=== PATIENT | male | born 1965 | race Two or more races ===

== ENCOUNTER 2024-08-23 09:42 | Emergency (ER) | payer MEDICAID, OTHER ==
[~2024-08-23] VITALS: Ht 172.7 cm; Wt 109.1 kg
--- NOTE | 2024-08-23 10:01 | ED.PDOC ---
History of Present Illness HPI Comments 58 y/o M presents with c/o left-sided facial numbness and droop since 0800, this morning. Patient comments on awakening, suddenly, to symptoms, with no prior Hx of. Patient endorses on no recent injuries, sick contact, travel, substance use or exposure, or new medication use. Denies having any left-sided weakness to upper or lower extremities, vision or speech changes, or other associated symptoms or modifiers at this time. Chief Complaint: Left Sided Weakness Time Seen by MD: 09:45 Reviewed Notes: Nurses Notes, Medications, Allergies Allergies: Coded Allergies: NO KNOWN ALLERGIES (Unverified , 08/23/24) Information Source: Patient Mode of Arrival: Ambulatory Severity: Moderate Timing: Hours Duration: Since onset Prehospital treatment: None Past Medical History PAST MEDICAL HISTORY: Denies Surgical History: Denies all surgeries Family History Family History: Unknown Social History Smoker: Non-Smoker Alcohol: Denies ETOH Use Drugs: Denies Drug Use Lives In: Home Constitutional: denies: chills, diaphoresis, fatigue, fever, malaise, sweats, weakness, others EENTM: denies: blurred vision, double vision, ear bleeding, ear discharge, ear drainage, ear pain, ear ringing, eye pain, eye redness, hearing loss, mouth pain, mouth swelling, nasal discharge, nose bleeding, nose congestion, nose pain, photophobia, tearing, throat pain, throat swelling, voice changes, others Respiratory: denies: cough, hemoptysis, orthopnea, SOB at rest, shortness of breath, SOB with excertion, stridor, wheezing, others Cardiovascular: denies: chest pain, dizzy spells, diaphoresis, Dyspnea on exertion, edema, irregular heart beat, left arm pain, lightheadedness, palpitations, PND, syncope, others Gastrointestinal: denies: abdomen distended, abdominal pain, blood streaked bowels, constipated, diarrhea, dysphagia, difficulty swallowing, hematemesis, melena, nausea, poor appetite, poor fluid intake, rectal bleeding, rectal pain, vomiting, others Genitourinary: denies: burning, dysuria, flank pain, frequency, hematuria, incontinence, penile discharge, penile sore, pain, testicle pain, testicle swelling, urgency, others Neurological: reports: others (left-sided facial droop and numbness); denies: dizziness, fainting, headache, left sided numbness, left sided weakness, numbn ess, paresthesia, pre-existing deficit, right sided numbness, right sided weakness, seizure, speech problems, tingling, tremors, weakness Musculoskeletal: denies: back pain, gout, joint pain, joint swelling, muscle pain, muscle stiffness, neck pain, others Integumetry: denies: bruises, change in color, change in hair/nails, dryness, laceration, lesions, lumps, rash, wounds, others Allergic/Immunocompromised: denies: Difficulty Healing, Frequent Infections, Hives, Itching, others Hematologic/Lymphatic: denies: anemia, blood clots, easy bleeding, easy bruising, swollen glands, others Endocrine: denies: excessive hunger, excessive sweating, excessive thirst, excessive urination, flushing, intolerance to cold, intolerance to heat, unexplained weight gain, unexplained weight loss, others Psychiatric: denies: anxiety, bipolar disorder, depression, hopeless, panic disorder, schizophrenia, sleepless, suicidal, others All Other Systems: Reviewed and Negative Physical Exam General Appearance: Moderate Distress HEENT: Normal ENT Inspection, Pharynx Normal, TMs Normal Neck: Full Range of Motion, Non-Tender, Normal, Normal Inspection Respiratory: Chest Non-Tender, Lungs Clear, No Accessory Muscle Use, No Respiratory Distress, Normal Breath Sounds Cardiovascular: No Edema, No JVD, No Murmur, No Gallop, Normal Peripheral Pulses, Regular Rate/Rhythm Breast Exam: Deferred Gastrointestinal: No Organomegaly, Non Tender, No Pulsatile Mass, Normal Bowel Sounds, Soft Genitalia: Deferred Pelvic: Deferred Rectal: Deferred Extremities: No calf tenderness, Normal capillary refill, Normal inspection, Normal range of motion, Non-tender, No pedal edema Musculoskeletal : Apperance: Normal Neurologic: Alert, Facial Droop (Left-sided patient was droop), No Motor Deficits, Normal Affect, Normal Mood, No Sensory Deficits Cerebellar Function: Normal Reflexes: Normal Skin: Dry, Normal Color, Warm Lymphatic: No Adenopathy Was a procedure done? Was a procedure done?: No EKG EKG : Pulse Rate (adult): 104 [place]: Normal Cardiac Rhythm: ST ST: Nonsp Differential Dx Considerations may include: Suresh's Palsy, CVA, TIA X-Ray, Labs, Meds, VS Vital Signs Date Time Temp Pulse Resp B/P (MAP) Pulse Ox O2 Delivery O2 Flow Rate FiO2 08/23/24 10:48 104 08/23/24 10:42 97.6 108 15 162/98 (119) 98 97.6 08/23/24 10:42 Room Air* 0 21 08/23/24 09:55 98.6 99 16 161/94 (116) 98 Lab Test 08/23/24 10:24 08/23/24 09:50 Range/Units White Blood Count Pending Red Blood Count Pending Hemoglobin Pending Hematocrit Pending Mean Corpuscular Volume Pending Mean Corpuscular Hemoglobin Pending Mean Corpuscular Hemoglobin Concent Pending Red Cell Distribution Width Pending Platelet Count Pending Mean Platelet Volume Pending Neutrophils (%) (Auto) Pending Lymphocytes (%) (Auto) Pending Monocytes (%) (Auto) Pending Basophils (%) (Auto) Pending Neutrophils # (Auto) Pending Lymphocytes # (Auto) Pending Monocytes # (Auto) Pending Prothrombin Time Pending Prothrombin Time INR Pending Activated Partial Thromboplast Time Pending Sodium Level Pending Potassium Level Pending Chloride Level Pending Carbon Dioxide Level Pending Anion Gap Pending Blood Urea Nitrogen Pending Creatinine Pending Glomerular Filtration Rate Calc Pending BUN/Creatinine Ratio Pending Serum Glucose Pending Calcium Level Pending Magnesium Level Pending Total Bilirubin Pending Aspartate Amino Transferase (AST) Pending Alanine Aminotransferase (ALT) Pending Alkaline Phosphatase Pending Troponin I High Sensitivity Pending B-Type Natriuretic Peptide Pending Total Protein Pending Albumin Pending POC Glucose 203 H 70-106 mg/dl The CT scan of the head shows: IMPRESSION: 1. Acute intraparenchymal hemorrhage in the posterior aspect of the hair. 2. Additional findings as detailed above. Critical findings Critical Result: Stroke Alert. Acute pontine hemorrhage. The chest x-ray is negative After receiving the findings on the CT scan, we immediately called [facility]. The patient was somewhat hypertensive so is being started on a nicardipine drip. The patient was being transferred to [place] at this time We spoke with the family and they are in agreement with the management. The patient will be flown by [employer] Images Reviewed?: Images reviewed and evaluated by me Time of 1ST Reevaluation: 10:15 Reevaluation 1ST: Unchanged Time of 2ND Reevaluation: 11:01 Reevaluation 2ND: Unchanged Patient Education/Counseling: Diagnosis, Treatment, Prognosis Family Education/Counseling: Diagnosis, Treatment, Prognosis, No Family Present Departure 1 Departure Time of Disposition: 11:01 Impression: Primary Impression: Intraparenchymal hemorrhage of brain Additional Impression: Hypertensive crisis Disposition: 51 HOSPICE/MEDICAL FACILITY Condition: Critical Critical Care Note Critical Care Time?: Yes (45 min-critical care time only) Stability Stability form required: Yes Stable for transfer: Intended for transfer (Health plan request transfer), To designated facility Heart Score Heart Score: Heart Score Response (Comments) Value History N/A 0 EKG N/A 0 Age N/A 0 Risk Factors N/A 0 Troponin N/A 0 Total 0 I personally scribed for OMAR HURD MD ([email or web address]) on 08/23/24 at 10:01. Electronically submitted by Sergo Haskins ([email or web address]). OMAR HURD MD Aug 23, 2024 10:01
--- NOTE | 2024-08-23 10:20 | DVH ---
EXAM: XY CHEST XRAY 1 VIEW Indication: Pain Technique: Single frontal view of the chest was obtained Comparison: None FINDINGS: Lines and Tubes: None Lungs: No focal consolidation. Pleura: No effusion. No pneumothorax. Cardiomediastinal contours: Unremarkable Bones: No acute osseous abnormality. IMPRESSION: No acute cardiopulmonary disease.
--- NOTE | 2024-08-23 10:28 | DVH ---
CLINICAL INFORMATION: 58 years old, Male; R/O CVA. TECHNIQUE: Axial imaging was obtained through the brain without contrast. Coronal and sagittal refor matted images were obtained, reviewed, and stored. Images were reviewed in brain and bone windows. A ll CT scans at this medical facility are performed using dose modulation techniques as appropriate to a performed exam including the following: Automated exposure control was utilized; adjustment of the MA and/or KV according to patient size; and use of iterative reconstruction technique. CTDIvol = 64.89 mGy DLP = 1277.22 mGy-cm COMPARISON: None FINDINGS: Acute intraparenchymal hemorrhage in the posterior aspect of the hair measuring up to 0.7 x 0.8 x 1.6 cm. The hemorrhage is in close proximity to the anterior aspect of the 4th ventricle. No significant mass effect. No midline shift. Scattered areas of hypoattenuation are seen in the periven tricular and subcortical white matter, which are nonspecific but most likely sequelae of small vessel ischemic disease.The ventricles and sulci are within normal limits in size for age. Basal cisterns a re patent. The calvarium is unremarkable. Paranasal sinuses and mastoid air cells are clear. IMPRESSION: 1. Acute intraparenchymal hemorrhage in the posterior aspect of the hair. 2. Additional findings as detailed above. Critical findings Critical Result: Stroke Alert. Acute pontine hemorrhage. Findings discussed with Dr. Urias by Dr. 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 ..
[2024-08-23] MEDS ORDERED: cloNIDine HCL 0.1 MG TAB PO ONE (10:45)
--- NOTE | 2024-08-23 10:46 | ECG ---
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
[2024-08-23 10:58] LABS: Basophils # (auto) 0.1 10 ^3/uL (0-0.2); Basophils % (auto) 0.6 % (0.0-2.0); Eosinophils # (auto) 0.1 10 ^3/uL (0-0.8); Eosinophils % (auto) 0.8 % (0.0-7.0); Hematocrit 50.8 % (41.0-53.0); Lymphocytes # (auto) 1.7 10 ^3/uL (0.4-5.4); Lymphocytes % (auto) 20.5 % (10.0-50.0); Mean Corpuscular Hemoglobin 29.1 pg (28.0-32.0); Mean Corpuscular Hgb Conc. 33.5 g/dL (32.0-36.0); Monocytes # (auto) 0.5 10 ^3/uL (0-1.3); Monocytes % (auto) 5.9 % (0.0-12.0); Neutrophils # (auto) 5.9 10 ^3/uL (1.6-8.6); Neutrophils % (auto) 72.2 % (37.0-80.0); Nucleated Red Blood Cells % 0.2 %; Platelet Count (auto) 249 10^3/uL (140-450); Red Blood Cells 5.84 10^6/uL (4.5-5.90); Red Cell Distribution Width 14.7 % (11.8-14.3); White Blood Cell 8.2 10^3/uL (4.4-10.8)
[2024-08-23 11:04] VITALS: BP 146/73; PULSE 105; RESP 25; TEMP 97.4; O2SAT 97
[2024-08-23 11:05] LABS: Alanine Aminotransferase 18 U/L (7-40); Albumin 4.4 g/dL (3.2-4.8); Alkaline Phosphatase 139 U/L (46-116); Anion Gap 11 (5-15); Aspartate Aminotransferase 13 U/L (13-40); BUN/Creatinine Ratio 8.2 (10.0-20.0); Blood Urea Nitrogen 7 mg/dL (9-23); Calcium 9.5 mg/dL (8.7-10.4); Carbon Dioxide 21 mmol/L (20-31); Chloride 108 mmol/L (98-107); Glucose 191 mg/dL (74-106); Sodium 140 mmol/L (136-145)
[2024-08-23 11:06] LABS: Bilirubin, Total 0.8 mg/dL (0.2-1.0)
[2024-08-23 11:20] LABS: INR 1.02 (0.9-1.15); Partial Thromboplastin Time 25.1 SEC (24.5-34.5); Prothrombin Time 10.8 sec (9.3-11.8)
== END 2024-08-23 11:50 | disposition short-term general hospital (02) ==
LOC: ER 09:42
DX: I61.3 Nontraumatic intracerebral hemorrhage in brain stem (principal); I16.9 Hypertensive crisis, unspecified; I10 Essential (primary) hypertension; R06.02 Shortness of breath
CPT/HCPCS: 36415; 70450; 71045; 80053; 82962; 83735; 83880; 84484; 85025; 85610; 85730; 93005; 96374

== ENCOUNTER 2024-09-04 11:32 | Inpatient (IN) | payer MEDICAID ==
[~2024-09-04] VITALS: Ht 172.7 cm; Wt 101.8 kg
--- NOTE | 2024-09-04 12:07 | ED.PDOC ---
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 Patient's daughter states she noticed his left face appeared to be drooping more than normal last night. Pt reports that he was here at [facility] on August 23 and diagno sed w/ acute pontine Hemorrhage and was transported to [place]. Daughter states that the facial droop seemed to be improving until last night when it became more pronounced. Both patient and daughter noticed the pt having air come out of the mouth when he pronounces the "P" or "F" sound, which is new since last night. PMHx of HTN. Denies headache, vision changes, chills, fever, N/V/D, SOB, CP or other associated symptoms, modifiers, or recent injuries at this time. Time Seen by MD: 11:40 Primary Care Provider: UNKNOWN Reviewed Notes: Nurses Notes, Medications, Allergies Allergies: Coded Allergies: NO KNOWN ALLERGIES (Unverified , 08/23/24) Home Meds Reported Medications Amlodipine Besylate (Amlodipine Besylate) 5 Mg Tab, 1 TAB PO DAILY 09/04/24 Information Source: Patient, Relative (Child) Mode of Arrival: EMS Severity: Moderate Timing: Hours Duration: Since onset, Hours Prehospital treatment: None Past Medical History PAST MEDICAL HISTORY: HTN Past Medical History (Other): pontine hemorrhage, residual R facial weakness Surgical History: Denies all surgeries Family History Family History: Reviewed,noncontributory to illness, Unknown Social History Smoker: Non-Smoker Alcohol: Denies ETOH Use Drugs: Denies Drug Use Lives In: Home Constitutional: reports: others (left sided weakness worsened); denies: chills, diaphoresis, fatigue, fever, malaise, sweats, weakness EENTM: denies: blurred vision, double vision, ear bleeding, ear discharge, ear drainage, ear pain, ear ringing, eye pain, eye redness, hearing loss, mouth pain, mouth swelling, nasal discharge, nose bleeding, nose congestion, nose pain, photophobia, tearing, throat pain, throat swelling, voice changes, others Respiratory: denies: cough, hemoptysis, orthopnea, SOB at rest, shortness of breath, SOB with excertion, stridor, wheezing, others Cardiovascular: denies: chest pain, dizzy spells, diaphoresis, Dyspnea on exertion, edema, irregular heart beat, left arm pain, lightheadedness, palpitations, PND, syncope, others Gastrointestinal: denies: abdomen distended, abdominal pain, blood streaked bowels, constipated, diarrhea, dysphagia, difficulty swallowing, hematemesis, melena, nausea, poor appetite, poor fluid intake, rectal bleeding, rectal pain, vomiting, others Genitourinary: denies: burning, dysuria, flank pain, frequency, hematuria, incontinence, penile discharge, penile sore, pain, testicle pain, testicle swelling, urgency, others Neurological: denies: dizziness, fainting, headache, left sided numbness, left sided weakness, numbness, paresthesia, pre-existing deficit, right sided numbness, right sided weakness, seizure, speech problems, tingling, tremors, weakness, others Musculoskeletal: denies: back pain, gout, joint pain, joint swelling, muscle pain, muscle stiffness, neck pain, others Integumetry: denies: bruises, change in color, change in hair/nails, dryness, laceration, lesions, lumps, rash, wounds, others Allergic/Immunocompromised: denies: Difficulty Healing, Frequent Infections, Hives, Itching, others Hematologic/Lymphatic: denies: anemia, blood clots, easy bleeding, easy bruising, swollen glands, others Endocrine: denies: excessive hunger, excessive sweating, excessive thirst, excessive urination, flushing, intolerance to cold, intolerance to heat, unexplained weight gain, unexplained weight loss, others Psychiatric: denies: anxiety, bipolar disorder, depression, hopeless, panic disorder, schizophrenia, sleepless, suicidal, others All Other Systems: Reviewed and Negative Physical Exam General Appearance: No Apparent Distress HEENT: Other Neck: Full Range of Motion, Normal Inspection Respiratory: Lungs Clear, No Accessory Muscle Use, No Respiratory Distress, Normal Breath Sounds Cardiovascular: No Edema, No JVD, Regular Rate/Rhythm Breast Exam: Deferred Gastrointestinal: Non Tender, Soft Genitalia: Deferred Pelvic: Deferred Rectal: Deferred Extremities: Normal inspection, Normal range of motion, Non-tender, No pedal edema Neurologic: Normal Affect, Normal Mood, Other (Cranial nerve III, and VII deficits on the left) Cerebellar Function: NOT DONE Reflexes: NOT DONE Skin: Dry, Normal Color, Warm Lymphatic: NOT DONE Was a procedure done? Was a procedure done?: No EKG EKG : Comments Sinus tach, rate 105, normal intervals, normal axis, possible old inferior infarct, nonspecific T changes. Differential Dx Considerations may include: New intracranial hemorrhage, progression of recent hemorrhagic CVA, electrolyte imbalance, infection such as UTI or encephalitis, among others X-Ray, Labs, Meds, VS Vital Signs Date Time Temp Pulse Resp B/P (MAP) Pulse Ox O2 Delivery O2 Flow Rate FiO2 09/04/24 12:01 Room Air* 0 21 09/04/24 11:56 99.2 107 15 141/82 (101) 98 09/04/24 11:41 105 Lab Test 09/04/24 12:15 Range/Units White Blood Count 10.1 4.4-10.8 10^3/uL Red Blood Count 6.03 H 4.5-5.90 10^6/uL Hemoglobin 17.8 H 13.5-17.5 g/dL Hematocrit 53.3 H 41.0-53.0 % Mean Corpuscular Volume 88.3 80.0-100.0 fL Mean Corpuscular Hemoglobin 29.5 28.0-32.0 pg Mean Corpuscular Hemoglobin Concent 33.4 32.0-36.0 g/dL Red Cell Distribution Width 14.8 H 11.8-14.3 % Platelet Count 275 140-450 10^3/uL Mean Platelet Volume 6.9 6.9-10.8 fL Neutrophils (%) (Auto) 76.9 37.0-80.0 % Lymphocytes (%) (Auto) 14.5 10.0-50.0 % Monocytes (%) (Auto) 7.4 0.0-12.0 % Eosinophils (%) (Auto) 0.8 0.0-7.0 % Basophils (%) (Auto) 0.4 0.0-2.0 % Neutrophils # (Auto) 7.8 1.6-8.6 10 ^3/uL Lymphocytes # (Auto) 1.5 0.4-5.4 10 ^3/uL Monocytes # (Auto) 0.8 0-1.3 10 ^3/uL Eosinophils # (Auto) 0.1 0-0.8 10 ^3/uL Basophils # (Auto) 0 0-0.2 10 ^3/uL Nucleated Red Blood Cells 0.1 % Prothrombin Time 11.6 9.3-11.8 sec Prothrombin Time INR 1.10 0.9-1.15 Activated Partial Thromboplast Time 28.4 24.5-34.5 SEC Sodium Level 138 136-145 mmol/L Potassium Level 4.4 3.5-5.1 mmol/L Chloride Level 108 H 98-107 mmol/L Carbon Dioxide Level 20 20-31 mmol/L Anion Gap 10 5-15 Blood Urea Nitrogen 9 9-23 mg/dL Creatinine 0.79 0.700-1.30 mg/dL Glomerular Filtration Rate Calc 103 >90 mL/min BUN/Creatinine Ratio 11.4 10.0-20.0 Serum Glucose 120 H 74-106 mg/dL Calcium Level 9.9 8.7-10.4 mg/dL PROCEDURE(s): HWOCT - HEAD WITHOUT CONTRAST REASON: worsening R facial droop, h/o ICH 08/23/24 ORDER NUMBER(s): [id number], ACCESSION NUMBER(s): [id number] CLINICAL INFORMATION: 58 years old, Male; worsening right facial droop, history of intracranial hemorrhage on 08/23/2024. TECHNIQUE: Axial imaging was obtained through the brain without contrast. Coronal and sagittal reformatted images were obtained, reviewed, and stored. Images were reviewed in brain and bone windows. All CT scans at this medical facility are performed using dose modulation techniques as appropriate to a performed exam including the following: Automated exposure control was utilized; adjustment of the MA and/or KV according to patient size; and use of iterative reconstruction technique. CTDIvol = 59.89 mGy DLP = 958.88 mGy-cm COMPARISON: CT STROKE CTH on DOS: 08/23/24 FINDINGS: Corresponding to the area of previously seen intracranial hemorrhage at the posterior aspect of the hair, there is an area of low-density causing mild partial effacement of the anterior aspect of the adjacent 4th ventricle. No new acute intracranial hemorrhage is seen. Scattered areas of hypoattenuation a re seen in the periventricular and subcortical white matter, which are nonspecific but most likely sequelae of small vessel ischemic disease. The calvarium is unremarkable. Paranasal sinuses and mastoid air cells are clear. IMPRESSION: 1. Previously seen area of intracranial hemorrhage at the posterior aspect of the hair not demonstrates low-density consistent with evolving changes from the prior hemorrhage, causing mild partial effacement of the anterior aspect of the 4th ventricle. 2. No new acute intracranial hemorrhage. 3. No other evidence of acute intracranial abnormality. 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 CT head IMPRESSION: 1. Previously seen area of intracranial hemorrhage at the posterior aspect of the hair not demonstrates low-density consistent with evolving changes from the prior hemorrhage, causing mild partial effacement of the anterior aspect of the 4th ventricle. 2. No new acute intracranial hemorrhage. 3. No other evidence of acute intracranial abnormality. CBC, basic metabolic panel, coagulation panel unremarkable for any abnormality of acute significance Patient was not having any pain on re-evaluation. There were no new neurologic changes. Plan is to admit the patient for brain MRI and re-evaluation by Neurology. Time of 1ST Reevaluation: 12:10 Reevaluation 1ST: Unchanged Patient Education/Counseling: Diagnosis, Treatment, Prognosis Family Education/Counseling: Diagnosis, Treatment, Prognosis Additional Information I reviewed the following notes from the pt's past medical encounters: 08/23/24 The following tests were ordered, and results were reviewed by me: labs, CT Additional information was gathered from interviewing the following independent historians: [facility] I reviewed and agreed with the following test results read by other providers: CT I discussed treatments and results with medical personnel and: (consultants, [facility], etc) Departure 1 Departure Time of Disposition: 15:00 Impression: Primary Impression: Weakness on right side of face Disposition: ADMITTED INPATIENT Admit to: Tele Condition: Guarded Critical Care Note Critical Care Time?: No Stability Stability form required: No Heart Score Heart Score: Heart Score Response (Comments) Value History N/A 0 EKG N/A 0 Age N/A 0 Risk Factors N/A 0 Troponin N/A 0 Total 0 I personally scribed for SARAH CARRINGTON MD ([email or web address]) on 09/04/24 at 12:07. Electronically submitted by Ronaldo Polo ([email or web address]). SARAH CARRINGTON MD Sep 04, 2024 12:07
[2024-09-04 12:30] LABS: Basophils # (auto) 0 10 ^3/uL (0-0.2); Basophils % (auto) 0.4 % (0.0-2.0); Eosinophils # (auto) 0.1 10 ^3/uL (0-0.8); Eosinophils % (auto) 0.8 % (0.0-7.0); Hematocrit 53.3 % (41.0-53.0); Hemoglobin 17.8 g/dL (13.5-17.5); Lymphocytes # (auto) 1.5 10 ^3/uL (0.4-5.4); Lymphocytes % (auto) 14.5 % (10.0-50.0); Mean Corpuscular Hemoglobin 29.5 pg (28.0-32.0); Mean Corpuscular Hgb Conc. 33.4 g/dL (32.0-36.0); Mean Corpuscular Volume 88.3 fL (80.0-100.0); Monocytes # (auto) 0.8 10 ^3/uL (0-1.3); Monocytes % (auto) 7.4 % (0.0-12.0); Neutrophils # (auto) 7.8 10 ^3/uL (1.6-8.6); Neutrophils % (auto) 76.9 % (37.0-80.0); Nucleated Red Blood Cells % 0.1 %; Platelet Count (auto) 275 10^3/uL (140-450); Red Blood Cells 6.03 10^6/uL (4.5-5.90); Red Cell Distribution Width 14.8 % (11.8-14.3); White Blood Cell 10.1 10^3/uL (4.4-10.8)
[2024-09-04 12:38] LABS: Potassium 4.4 mmol/L (3.5-5.1); Sodium 138 mmol/L (136-145)
[2024-09-04 12:39] LABS: Anion Gap 10 (5-15)
[2024-09-04 12:40] LABS: Calcium 9.9 mg/dL (8.7-10.4); Carbon Dioxide 20 mmol/L (20-31); Chloride 108 mmol/L (98-107)
[2024-09-04 12:44] LABS: BUN/Creatinine Ratio 11.4 (10.0-20.0)
[2024-09-04 12:47] LABS: Blood Urea Nitrogen 9 mg/dL (9-23); Glucose 120 mg/dL (74-106); INR 1.1 (0.9-1.15); Partial Thromboplastin Time 28.4 SEC (24.5-34.5); Prothrombin Time 11.6 sec (9.3-11.8)
--- NOTE | 2024-09-04 12:53 | DVH ---
CLINICAL INFORMATION: 58 years old, Male; worsening right facial droop, history of intracranial he morrhage on 08/23/2024. TECHNIQUE: Axial imaging was obtained through the brain without contrast. Coronal and sagittal refor matted images were obtained, reviewed, and stored. Images were reviewed in brain and bone windows. A ll CT scans at this medical facility are performed using dose modulation techniques as appropriate to a performed exam including the following: Automated exposure control was utilized; adjustment of the MA and/or KV according to patient size; and use of iterative reconstruction technique. CTDIvol = 59.89 mGy DLP = 958.88 mGy-cm COMPARISON: CT STROKE CTH on DOS: 08/23/24 FINDINGS: Corresponding to the area of previously seen intracranial hemorrhage at the posterior aspe ct of the hair, there is an area of low-density causing mild partial effacement of the anterior aspec t of the adjacent 4th ventricle. No new acute intracranial hemorrhage is seen. Scattered areas of hyp oattenuation are seen in the periventricular and subcortical white matter, which are nonspecific but most likely sequelae of small vessel ischemic disease. The calvarium is unremarkable. Paranasal sinuses and mastoid air cells are clear. IMPRESSION: 1. Previously seen area of intracranial hemorrhage at the posterior aspect of the hair not demonstrat es low-density consistent with evolving changes from the prior hemorrhage, causing mild partial effac ement of the anterior aspect of the 4th ventricle. 2. No new acute intracranial hemorrhage. 3. No other evidence of acute intracranial abnormality.
[2024-09-04 15:20] VITALS: PULSE 88; RESP 14; O2SAT 94
[2024-09-04] MEDS ORDERED: AMLO1TAB22 PO (15:32)
--- NOTE | 2024-09-04 16:01 | DVHHP2 ---
History of Present Illness Reason for Visit: left sided facial droop History of Present Illness Fab Mccullough is a 58YO M with pmHx of HTN and CVA who presents to the ED for left sided facial droop x 1 day. He stated his daughter says his left side of his face is worse today compared to yesterday, however patient states it is the same and has not changed. Patient reports he was admitted here on August 23 and transferred to [facility] for an acute pontine hemorrhagic stroke, received treatment there and was discharged after several days. Patient's daughter brought him here today for an evaluation. Patient also reports double vision in his left eye in which he wears an eye patch for. Patient also reports using a FWW d/t the stroke. Patient reports he is compliant with his medication. Patient denies smoking, drinking, use of illicit drugs, acute weakness, numbness, tingling, STARK, lightheadedness, dizziness, sob, chest pain, N/V/D, and dysphagia. 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 Past Surgical History: None Family History: None Smoke: No ALCOHOL: none Drugs: None Lives: with Family Domestic Violence: Neg Review of Systems Constitutional: No: Fever, Chills, Sweats, Weakness, Malaise, Other Eyes: Other (double vision on left eye, wears an eye patch); No: Pain, Vision change, Conjunctivae inflammation, Eyelid inflammation, Redness ENT: No: Ear pain, Ear discharge, Nose pain, Nose discharge, Nose congestion, Mouth pain, Mouth swelling, Throat pain, Throat swelling, Other Respiratory: No: Cough, Dry, Shortness of breath, SOB with excertion, Wheezing, Hemoptysis, Pleuritic Pain, Sputum, Wheezing, Other Cardiovascular: No: Chest Pain, Palpitations, Orthopnea, Paroxysmal Noc. Dyspnea, Edema, Lt Headedness, Other Gastrointestinal: No: Nausea, Vomiting, Abdominal Pain, Diarrhea, Constipation, Melena, Hematochezia, Other Genitourinary: No Dysuria, No Frequency, No Incontinence, No Hematuria, No Retention, No Other Musculoskeletal: No: other, neck pain, shoulder pain, arm pain, back pain, hand pain, leg pain, foot pain Skin: No: Rash, Lesions, Jaundice, Bruising, Other Neurological: Other (left sided facial droop); No: Weakness, Numbness, Incoordination, Change in speech, Confusion, Seizures Allergies: Coded Allergies: NO KNOWN ALLERGIES (Unverified , 08/23/24) Exam Vital Signs Vital Signs Date Time Temp Pulse Resp B/P (MAP) Pulse Ox O2 Delivery O2 Flow Rate FiO2 09/04/24 12:01 Room Air* 0 21 09/04/24 11:56 99.2 107 15 141/82 (101) 98 General Appearance: Alert, Oriented X3, No acute distress HEENT: Atraumatic, PERRLA, EOMI, Mucous membr. moist/pink Respiratory: Clear to auscultation, Normal air movement Cardiovascular: Regular rate, Normal S1, Normal S2, No murmurs Abdominal: Normal bowel sounds, Soft, No tenderness, No hepatospenomegaly Extremities: No clubbing, No cyanosis, No edema, Normal pulses, No tenderness/swelling Skin: No rashes, No breakdown, No significant lesion Neuro: Normal speech, Strength at 5/5 X4 ext, Normal tone, Sensation intact, Other (uses FWW for ambulation) Psych/Mental Status: Mental status NL, Mood NL Labs/Xrays Labs Test 09/04/24 12:15 Range/Units White Blood Count 10.1 4.4-10.8 10^3/uL Red Blood Count 6.03 H 4.5-5.90 10^6/uL Hemoglobin 17.8 H 13.5-17.5 g/dL Hematocrit 53.3 H 41.0-53.0 % Mean Corpuscular Volume 88.3 80.0-100.0 fL Mean Corpuscular Hemoglobin 29.5 28.0-32.0 pg Mean Corpuscular Hemoglobin Concent 33.4 32.0-36.0 g/dL Red Cell Distribution Width 14.8 H 11.8-14.3 % Platelet Count 275 140-450 10^3/uL Mean Platelet Volume 6.9 6.9-10.8 fL Neutrophils (%) (Auto) 76.9 37.0-80.0 % Lymphocytes (%) (Auto) 14.5 10.0-50.0 % Monocytes (%) (Auto) 7.4 0.0-12.0 % Eosinophils (%) (Auto) 0.8 0.0-7.0 % Basophils (%) (Auto) 0.4 0.0-2.0 % Neutrophils # (Auto) 7.8 1.6-8.6 10 ^3/uL Lymphocytes # (Auto) 1.5 0.4-5.4 10 ^3/uL Monocytes # (Auto) 0.8 0-1.3 10 ^3/uL Eosinophils # (Auto) 0.1 0-0.8 10 ^3/uL Basophils # (Auto) 0 0-0.2 10 ^3/uL Nucleated Red Blood Cells 0.1 % Prothrombin Time 11.6 9.3-11.8 sec Prothrombin Time INR 1.10 0.9-1.15 Activated Partial Thromboplast Time 28.4 24.5-34.5 SEC Sodium Level 138 136-145 mmol/L Potassium Level 4.4 3.5-5.1 mmol/L Chloride Level 108 H 98-107 mmol/L Carbon Dioxide Level 20 20-31 mmol/L Anion Gap 10 5-15 Blood Urea Nitrogen 9 9-23 mg/dL Creatinine 0.79 0.700-1.30 mg/dL Glomerular Filtration Rate Calc 103 >90 mL/min BUN/Creatinine Ratio 11.4 10.0-20.0 Serum Glucose 120 H 74-106 mg/dL Calcium Level 9.9 8.7-10.4 mg/dL CLINICAL INFORMATION: 58 years old, Male; worsening right facial droop, history of intracranial hemorrhage on 08/23/2024. FINDINGS: Corresponding to the area of previously seen intracranial hemorrhage at the posterior aspect of the hair, there is an area of low-density causing mild partial effacement of the anterior aspect of the adjacent 4th ventricle. No new acute intracranial hemorrhage is seen. Scattered areas of hypoattenuation are seen in the periventricular and subcortical white matter, which are nonspecific but most likely sequelae of small vessel ischemic disease. The calvarium is unremarkable. Paranasal sinuses and mastoid air cells are clear. IMPRESSION: 1. Previously seen area of intracranial hemorrhage at the posterior aspect of the hair not demonstrates low-density consistent with evolving changes from the prior hemorrhage, causing mild partial effacement of the anterior aspect of the 4th ventricle. 2. No new acute intracranial hemorrhage. 3. No other evidence of acute intracranial abnormality. Assessment/Plan Assessment/Plan Assessment/Plan: R/O Stroke neuro assessment neuro checks labs am labs ct head noted ekg HTN home medication continued - amlodipine monitor BP Hyperchloremia monitor labs FEN/PPX diet hl pud ppx not indicated no hx of GERD dvt ppx - patient ambulating not indicated and patient had a recent hemorrhagic stroke will not give asa Admit to med surg Discussed plan of care with patient and nurse Home medication reconciled Plan discussed with: Patient My Orders Orders - MICHELINE BEAL Procedure Category Date Status Time Neuro Checks Q2hrs JOSÉ LUIS 09/04/24 In Process 15:10 Neurological JOSÉ LUIS 09/04/24 In Process Assessment 15:10 Admit ADMIT 09/04/24 Transmitted 15:10 Code Status CODE 09/04/24 Transmitted 15:10 Cardiac DIET 09/04/24 Transmitted Diet-2gna,Lofat,Lochol Dinner Film Archivist JOSÉ LUIS 09/04/24 In Process Complete Blood Count LAB 09/05/24 Verified 04:00 Comprehensive LAB 09/05/24 Verified Metabolic Panel 04:00 Date of Service: Sep 04, 2024 Billing Provider: MICHELINE BEAL Common Visit Codes: [id number] INP/OBS CARE (MOD) MIHCELINE BEAL Sep 04, 2024 16:01
[2024-09-04 22:38] VITALS: BP 131/83; PULSE 83; RESP 16; TEMP 97.8; O2SAT 98
[2024-09-05] VITALS (7 sets, daily range): BP systolic 112–140; BP diastolic 66–87; PULSE 80–109; RESP 16–20; TEMP 97.8–98.7; O2SAT 94–96
[2024-09-05] MEDS ORDERED: AMLO1TAB22 PO (01:23)
[2024-09-05 06:07] LABS: Basophils # (auto) 0.1 10 ^3/uL (0-0.2); Basophils % (auto) 0.5 % (0.0-2.0); Eosinophils # (auto) 0.2 10 ^3/uL (0-0.8); Eosinophils % (auto) 1.8 % (0.0-7.0); Hematocrit 50.2 % (41.0-53.0); Hemoglobin 16.7 g/dL (13.5-17.5); Lymphocytes % (auto) 20.5 % (10.0-50.0); Mean Corpuscular Hemoglobin 29.6 pg (28.0-32.0); Mean Corpuscular Hgb Conc. 33.2 g/dL (32.0-36.0); Mean Corpuscular Volume 89.1 fL (80.0-100.0); Monocytes # (auto) 0.9 10 ^3/uL (0-1.3); Monocytes % (auto) 8.8 % (0.0-12.0); Neutrophils # (auto) 6.7 10 ^3/uL (1.6-8.6); Neutrophils % (auto) 68.4 % (37.0-80.0); Nucleated Red Blood Cells % 0.1 %; Platelet Count (auto) 223 10^3/uL (140-450); Red Blood Cells 5.63 10^6/uL (4.5-5.90); Red Cell Distribution Width 14.8 % (11.8-14.3); White Blood Cell 9.7 10^3/uL (4.4-10.8)
[2024-09-05 06:32] LABS: Alanine Aminotransferase 14 U/L (7-40); Albumin 4.2 g/dL (3.2-4.8); Anion Gap 9 (5-15); Aspartate Aminotransferase 14 U/L (13-40); BUN/Creatinine Ratio 11.5 (10.0-20.0); Blood Urea Nitrogen 9 mg/dL (9-23); Calcium 9.9 mg/dL (8.7-10.4); Carbon Dioxide 23 mmol/L (20-31); Chloride 107 mmol/L (98-107); Glucose 94 mg/dL (74-106); Potassium 4.1 mmol/L (3.5-5.1); Sodium 139 mmol/L (136-145); Total Protein 6.7 g/dL (5.7-8.2)
[2024-09-05 06:47] LABS: Alkaline Phosphatase 129 U/L (46-116); Bilirubin, Total 1.4 mg/dL (0.2-1.0)
[2024-09-05 08:40] LABS: Triglycerides 121 mg/dL (< 150)
[2024-09-05 08:41] LABS: LDL Cholesterol 113 mg/dL (< 100)
[2024-09-05 08:42] LABS: Cholesterol 157 mg/dL (< 200); HDL Cholesterol 33 mg/dL (40-59)
--- NOTE | 2024-09-05 11:15 | DVH ---
EXAM: CT HEAD WITHOUT CONTRAST HISTORY: H/o stroke, follow up ct COMPARISON: CT HEAD WITHOUT CONTRAST on DOS: 09/04/24, CT STROKE CTH on DOS: 08/23/24 TECHNIQUE: Axial images were obtained and reformatted in coronal and sagittal planes. All CT scans at this medical facility are performed using dose modulation techniques as appropriate t o a performed exam including the following: Automated exposure control was utilized; adjustment of th e MA and/or KV according to patient size; and use of iterative reconstruction technique. CT Dose: CTDI volume is 53.94 mGy. Dose-length product is 1082.34 mGy*cm FINDINGS: Supratentorial Region: No evidence for large acute territorial ischemia. No intracranial hemorrhage is noted. Posterior Fossa: No acute abnormality. Midbrain: Persistent edema in the area of the previously seen hemorrhage in posterior left paramedia n midbrain with mild mass effect on the adjacent 4th ventricle noted. There is a new punctate focus of density anterior to this hypoattenuating area that may represent a prominent vessel or new punctat e hemorrhage. Sellar/Suprasellar Region: Unremarkable. Ventricles, Cisterns, Sulci: Age-appropriate. Orbits: Unremarkable. Paranasal Sinuses: Unremarkable. Mastoid Air Cells: Unremarkable. Vasculature: Unremarkable. Bones/Soft Tissues: No acute abnormality. Other: None. IMPRESSION: 1. Persistent edema in the area of the previously seen hemorrhage in posterior left paramedian midbra in with mild mass effect on the adjacent 4th ventricle noted. There is a new punctate focus of densi ty anterior to this hypoattenuating area that may represent a prominent vessel or new punctate hemorr alonso. Recommend attention on follow-up. No hydrocephalus or midline shift.
[2024-09-05] MEDS: amLODIPine BESYLATE 5 MG TAB PO ONE (11:53)
--- NOTE | 2024-09-05 12:44 | DVHINCON2 ---
Date of service: Sep 05, [address] Kaufman History of Present Illness Mr. Mccullough is a 56 years old right-handed gentleman with a history of hypertension, recent hemorrhage pontine stroke with residual diplopia, left facial weakness (will be further described), he came to the hospital on 09/04/2024 with a chief company of new left facial weakness. At this time, he was alert and fully oriented, family is in the room with him On 09/04/24, he developed new mild left mouth drooping, left cheek numbness, but he denies new problems in the vision, he denies weakness/numbness in the left extremities, no dizziness, no headache On 08/23/2024, he developed left facial weakness, numbness, double vision, he was found to have pontine hemorrhagic stroke in the [facility] and was transferred and treated in the [facility] conservatively, on discharge, the patient was recommended to take Norvasc, but he was not r ecommended to take aspirin or any blood thinner. Since the stroke, the patient was being using a walker for imbalance CBC, 09/05/2024: Unremarkable new line PT/INR/PTT, 09/04/2024: 11.6/1.1/28.4 BMP, 09/05/24: Unremarkable HGB A1c, 09/05/2020 4:5.7 TBI/AST/ALT/AP, 09/05/2024: 1.4/13/14/129 TG/HDL/LDL/HDL, 09/05/2024: 1221/157/113/33 CT head, 09/04/2024, comparison: CT dated 08/23/2024: 1. Previously seen area of intracranial hemorrhage at the posterior aspect of the hair not demonstrates low-density consistent with evolving changes from the prior hemorrhage, causing mild partial effacement of the anterior aspect of the 4th ventricle. 2. No new acute intracranial hemorrhage. 3. No other evidence of acute intracranial abnormality CT head, 09/05/2024: Persistent edema in the area of the previously seen hemorrhage in posterior left paramedian midbrain with mild mass effect on the adjacent 4th ventricle noted. There is a new punctate focus of density anterior to this hypoattenuating area that may represent a prominent vessel or new punctate hemorrhage. Recommend attention on follow-up. No hydrocephalus or midline shift Past Medical History Hypertension, pontine hemorrhage with a residual right facial weakness Past Surgical History None Family History: Diabetes mellitus G8 MOTHER Family History Hypertension, diabetes Social History He was a tobacco smoker, but no history of alcohol or recreational substance abuse Allergies: Coded Allergies: NO KNOWN ALLERGIES (Unverified , 08/23/24) Home Meds Reported Medications Amlodipine Besylate (Amlodipine Besylate) 5 Mg Tab, 5 MG PO DAILY for 30 Days, MG 09/05/24 Amlodipine Besylate (Amlodipine Besylate) 5 Mg Tab, 1 TAB PO DAILY 09/04/24 Current Medications Current Medications Medications (Trade) Dose Ordered Sig/Kirk Route PRN Reason Start Time Stop Time Status Last Admin Amlodipine Besylate (Norvasc Tablet) 5 mg DAILY PO 09/06/24 10:00 Review of Systems As above, the other systems are negative Vital Signs Vital Signs Date Time Temp Pulse Resp B/P (MAP) Pulse Ox O2 Delivery O2 Flow Rate FiO2 09/05/24 11:53 133/88 09/05/24 09:00 97.8 83 16 96 97.8 09/04/24 22:38 Room Air* 0 21 Physical Exam GENERAL EXAM: General: the patient is well developed and nourished. No acute distress. HEENT: Normocephalic, neck is supple, no carotid bruits. No mass RESPIRATORY: Normal respiratory effort with symmetrical lung expansion. Lungs clear to auscultation. CARDIOVASCULAR: Regular rate and rhythm with no murmurs. S1, S2. ABDOMEN: Soft, nontender, normal bowel sound NEUROLOGICAL: MENTAL STATUS: Awake and alert. Oriented to person, place, time and general circumstances. Able to give personal history. SPEECH, LANGUAGE, HIGHER CORTICAL FUNCTION: no aphasia or dysathria. CRANIAL NERVES: #2: Intact visual lemos to confrontation. The optic discs were sharp. #3,4,6: Pupils are equal, round and reactive. Left sixth cranial nerve palsy. No nystagmus. #5: Facial sensation intact in all three divisions bilaterally. Mandibular strength intact. #7: Left facial weakness of lower motor neuron pattern #8: Hearing grossly normal to voice. #9,10: Uvula and soft palate rise in the midline. Swallow and voice are normal. #11: Trapezius and sternomastoid strength intact bilaterally. #12: Tongue midline. No fasciculations or atrophy. SENSATION: Sensation to touch and pinprick is normal. MOTOR: Normal tone in the upper and lower extremity. Normal muscle bulk. No fasciculations. No abnormal movements or posturing. Muscle strength of the major groups in the upper extremities is 5/5. Muscle strength of the major groups in the lower extremities is 5/5. REFLEXES: Deep tendon reflexes normal and symmetrical. No pathological reflexes. CEREBELLAR/COORDINATION: Finger to nose is normal bilaterally. GAIT/STATION: deferred. Labs/Diagnostic Data Labs Test 09/05/24 04:44 09/04/24 12:15 Range/Units White Blood Count 9.7 4.4-10.8 10^3/uL Red Blood Count 5.63 4.5-5.90 10^6/uL Hemoglobin 16.7 13.5-17.5 g/dL Hematocrit 50.2 41.0-53.0 % Mean Corpuscular Volume 89.1 80.0-100.0 fL Mean Corpuscular Hemoglobin 29.6 28.0-32.0 pg Mean Corpuscular Hemoglobin Concent 33.2 32.0-36.0 g/dL Red Cell Distribution Width 14.8 H 11.8-14.3 % Platelet Count 223 140-450 10^3/uL Mean Platelet Volume 7.0 6.9-10.8 fL Neutrophils (%) (Auto) 68.4 37.0-80.0 % Lymphocytes (%) (Auto) 20.5 10.0-50.0 % Monocytes (%) (Auto) 8.8 0.0-12.0 % Eosinophils (%) (Auto) 1.8 0.0-7.0 % Basophils (%) (Auto) 0.5 0.0-2.0 % Neutrophils # (Auto) 6.7 1.6-8.6 10 ^3/uL Lymphocytes # (Auto) 2.0 0.4-5.4 10 ^3/uL Monocytes # (Auto) 0.9 0-1.3 10 ^3/uL Eosinophils # (Auto) 0.2 0-0.8 10 ^3/uL Basophils # (Auto) 0.1 0-0.2 10 ^3/uL Nucleated Red Blood Cells 0.1 % Sodium Level 139 136-145 mmol/L Potassium Level 4.1 3.5-5.1 mmol/L Chloride Level 107 98-107 mmol/L Carbon Dioxide Level 23 20-31 mmol/L Anion Gap 9 5-15 Blood Urea Nitrogen 9 9-23 mg/dL Creatinine 0.78 0.700-1.30 mg/dL Glomerular Filtration Rate Calc 103 >90 mL/min BUN/Creatinine Ratio 11.5 10.0-20.0 Serum Glucose 94 74-106 mg/dL Hemoglobin A1c 5.7 <5.7 % A1C Calcium Level 9.9 8.7-10.4 mg/dL Total Bilirubin 1.4 H 0.2-1.0 mg/dL Aspartate Amino Transferase (AST) 14 13-40 U/L Alanine Aminotransferase (ALT) 14 7-40 U/L Alkaline Phosphatase 129 H 46-116 U/L Total Protein 6.7 5.7-8.2 g/dL Albumin 4.2 3.2-4.8 g/dL Triglycerides Level 121 < 150 mg/dL Cholesterol Level 157 < 200 mg/dL LDL Cholesterol 113 H < 100 mg/dL HDL Cholesterol 33 L 40-59 mg/dL Prothrombin Time 11.6 9.3-11.8 sec Prothrombin Time INR 1.10 0.9-1.15 Activated Partial Thromboplast Time 28.4 24.5-34.5 SEC Assessment Hemorrhage pontine stroke on 08/23/2024 with residual left facial weakness, left six cranial nerve palsy and gait disturbance Acute left mouth corner drooping, left cheek numbness on 09/04/2024, to rule out new stroke Plan/Recommendation Monitoring Supportive treatment Telemetry MR brain scan Up to chair Physical therapy More recommendation per clinical course Progress: Poor This medical document was created using an electronic medical record system with [employer] dictation system. Although this document has been carefully reviewed, there may still be some phonetic and typographical errors. These areas are purely typographical due to imperfections of the software programs, and do not reflect any compromise in the patient's medical care. Plan discussed with: Patient, Other KENAN PARRY MD Sep 05, 2024 12:44
[2024-09-05] MEDS ORDERED: LORazepam 2MG/ML-1ML VIAL IV ONE (13:15)
--- NOTE | 2024-09-05 16:50 | DVHPNRES ---
Progress Note Date Seen: Sep 05, 2024 Resident Creating Document: TON CANADACARISSA RESIDENT Medical Necessity Reason Pt with a Central, PICC or Fol: No Subjective Review of Systems Patient is a 58 year old male with a past medical history as described below came to the ED with the chief complaint of Facial droop noticed by the daughter in the morning of the day of presentation. Patient reported he was apparently well until [id number] when he felt numbness in left side of the face and had vision abnormalities and felt weak, following which he was evaluated in the hospital where CT showed Acute intraparenchymal hemorrhage in the posterior aspect of the hair. Patient was stabilised and sent for higher level of care at [facility] where from where he was reportedly discharged after 2 days. Patient was feeling well with residual effects of aphasia, imbalance walking with a front wheel walker, no motor or sensory deficiets until the morning of presentation to the hospital when the daughter saw that his facial droop seems to have aggravated but the patient did not feel so, anyway he came to the hospital for further evaluation. CT head without contrast was done which showed 1. Previously seen area of intracranial hemorrhage at the posterior aspect of the hair not demonstrates low-density consistent with evolving changes from the prior hemorrhage, causing mild partial effacement of the anterior aspect of the 4th ventricle. 2. No new acute intracranial hemorrhage. 3. No other evidence of acute intracranial abnormality. Past medical history: none Past surgical history: none Social history: lives with family and denies smoking, drugs, alcohol use Home medications: amlodipine 5mg daily Review of systems Patient is seen and examined at the bedside. Alert and oriented X 4. Report diplopia in the left eye. No headache, chest pain, shortness of breath, palpitations, motor or sensory weakness. Vitals stable, on room air, tolerating regular diet well Objective vital signs Vital Sign Date Time Temp Pulse Resp B/P (MAP) Pulse Ox O2 Delivery O2 Flow Rate FiO2 09/05/24 13:00 98.0 98 18 126/86 (99) 94 98.0 09/04/24 22:38 Room Air* 0 21 Total Intake and Output 09/04/24 09/04/24 09/05/24 15:00 23:00 07:00 Intake Total 500 ml Balance 500 ml medications Current Medications Medications Dose Ordered Sig/Kirk Route Start Time Stop Time Status Last Admin Dose Admin Amlodipine Besylate 5 mg DAILY PO 09/06/24 10:00 Examination Physical Examination Gen - no pallor, no icterus, no cyanosis, no clubbing, no LAD, no edema. Skin - Patients skin is warm and dry. HEENT - normocephalic, atraumatic, moist mucous membranes. Neck - full ROM, no LAD, no JVD Pulmonary - B/L breath sounds improved, no crackles, no wheezing. cardiovascular - normal S1,S2 heard. no murmurs heard. peripheral pulses radial 2+, pedal 2+. GI - soft abdomen without tenderness to palpation. no hepatospleenomegaly. Bowel sounds normoactive Neurological - Patient is A/O X 3. Bilateral upper extremity strength 5/5, bilateral lower extremity strength 5/5, normal DTRs CN 2- vision intact, diplopia CN 3, 4, 6- left 6th nerve palsy, otherwise normal exam CN 5- facial sensation intact, jaw strength intact CN 7- complete left sided facial weakness CN 8- normal hearing CN 9,10- central uvula, no difficulty swallowing CN 11- shoulder shrugging normal CN 12- tongue midline Sensory: normal touch, temprature and joint position Romberg sign positive laboratory and microbiology Laboratory Tests 09/05/24 04:44 Test 09/05/24 04:44 Range/Units Serum Glucose 94 74-106 mg/dL Problem List/Assessment/Plan Problem List/Assessment/Plan Assessment and plan # Pontine hemorrhagic stroke # residual left facial weakness # Left 6th nerve palsy # Ataxia # ?Rule out new stroke - 09/04 CT head shows 1. Previously seen area of intracranial hemorrhage at the posterior aspect of the hair not demonstrates low-density consistent with evolving changes from the prior hemorrhage, causing mild partial effacement of the anterior aspect of the 4th ventricle. 2. No new acute intracranial hemorrhage. 3. No other evidence of acute intracranial abnormality. - Repeat CT head on 09/05 shows persistent edema in the area of the previously seen hemorrhage in posterior left paramedian midbrain with mild mass effect on the adjacent 4th ventricle noted. There is a new punctate focus of density anterior to this hypoattenuating area that may represent a prominent vessel or new punctate hemorrhage. - Neurology consulted who recommended MR brain scan and physical therapy and continuing monitoring. - MRI Brain pending - continued on amlodipine 5mg daily # Dyslipidemia - elevated LDL at 113 Goals of care discussed with the patient and the family for over 27mins. Full code Plan discussed with Plan discussed with: Patient, Daughter My Orders My Orders Orders - JOYCE CANADA Procedure Category Date Status Time Head Without Contrast CT 09/05/24 Resulted 10:17 Amlodipine Tablet PHA 09/06/24 In Process (Norvasc Tablet) 10:00 Date of Service: Sep 05, 2024 Billing Provider: JOSEF MONSALVE MD Common Visit Codes: [id number] INP/OBS CARE(HIGH) JOYCE CANADA Sep 05, 2024 16:49 JOSEF MONSALVE MD Sep 05, 2024 23:40
--- NOTE | 2024-09-05 18:24 | DVH ---
CLINICAL INDICATION: 58 years old, Male; CVA. COMPARISON: CT HEAD WITHOUT CONTRAST on DOS: 09/05/24, CT HEAD WITHOUT CONTRAST on DOS: 09/04/24. CT dated 08/23/2024. TECHNIQUE: Multisequence multiplanar MRI images of the brain were obtained without contrast. FINDINGS: There is T1 hyperintense intraparenchymal hemorrhage in the posterior aspect of the hair, slightly to the left of midline, measuring up to 0.8 cm in greatest dimension, also demonstrating res tricted diffusion. There is mild mass effect on the adjacent left anterior aspect of the 4th ventricl e. The hemorrhage also demonstrates T2 and FLAIR hyperintense signal. There is some surrounding vasog enic edema. No evidence of acute infarct. The lateral ventricles and 3rd ventricle are within normal limits in size. Basal cisterns are patent. Mild mucosal thickening of the paranasal sinuses. Orbits are grossly unremarkable. IMPRESSION: 1. Again noted is subacute intraparenchymal hemorrhage in the posterior aspect of the hair. There is associated mild edema and mild mass effect on the adjacent portions of the 4th ventricle. 2. No other acute abnormality identified
[2024-09-06 01:00] VITALS: BP 123/75; PULSE 95; RESP 17; TEMP 98.2; O2SAT 96
[2024-09-06 05:00] VITALS: BP 120/85; PULSE 91; RESP 20; TEMP 98.2; O2SAT 92
[2024-09-06 07:07] LABS: Potassium 3.9 mmol/L (3.5-5.1); Sodium 141 mmol/L (136-145)
[2024-09-06 07:08] LABS: Calcium 9.9 mg/dL (8.7-10.4)
[2024-09-06 07:12] LABS: Glucose 105 mg/dL (74-106)
[2024-09-06 07:13] LABS: BUN/Creatinine Ratio 11.6 (10.0-20.0); Blood Urea Nitrogen 10 mg/dL (9-23)
[2024-09-06 08:00] VITALS: PULSE 92; RESP 16; O2SAT 94
[2024-09-06 08:07] LABS: Chloride 108 mmol/L (98-107)
[2024-09-06 08:13] LABS: Basophils # (auto) 0.1 10 ^3/uL (0-0.2); Basophils % (auto) 0.6 % (0.0-2.0); Eosinophils # (auto) 0.2 10 ^3/uL (0-0.8); Eosinophils % (auto) 1.6 % (0.0-7.0); Hematocrit 48.9 % (41.0-53.0); Hemoglobin 16.6 g/dL (13.5-17.5); Lymphocytes # (auto) 2.3 10 ^3/uL (0.4-5.4); Lymphocytes % (auto) 25.2 % (10.0-50.0); Mean Corpuscular Hemoglobin 29.5 pg (28.0-32.0); Mean Corpuscular Hgb Conc. 33.9 g/dL (32.0-36.0); Monocytes # (auto) 0.7 10 ^3/uL (0-1.3); Monocytes % (auto) 7.4 % (0.0-12.0); Neutrophils % (auto) 65.2 % (37.0-80.0); Nucleated Red Blood Cells % 0.2 %; Platelet Count (auto) 250 10^3/uL (140-450); Red Blood Cells 5.61 10^6/uL (4.5-5.90); Red Cell Distribution Width 14.4 % (11.8-14.3); White Blood Cell 9.2 10^3/uL (4.4-10.8)
[2024-09-06 08:31] LABS: Anion Gap 11 (5-15); Carbon Dioxide 22 mmol/L (20-31)
[2024-09-06 09:00] VITALS: BP 122/85; PULSE 92; RESP 16; TEMP 97.9; O2SAT 94
[2024-09-06] MEDS: MANNITOL FTV 25% 12.5 GM/50 ML 50 ML IV ONE (09:15)
--- NOTE | 2024-09-06 09:30 | DVHPN2 ---
Progress Note - Dictate Date Seen: Sep 06, 2024 Medical Necessity Reason Pt with a Central, PICC or Fol: No Subjective Mr. Mccullough is a 56 years old right-handed gentleman with a history of hypertension, recent hemorrhage pontine stroke with residual diplopia, left facial weakness (will be further described), he came to the hospital on 09/04/2024 with a chief company of new left facial weakness. I have seen and examined the patient, I have discussed with his nurse, he was, no new complaints he is fully oriented, no obvious change on physical examination At this time, he was alert and fully oriented, family is in the room with him CBC, 09/05/2024: Unremarkable new line PT/INR/PTT, 09/04/2024: 11.6/1.1/28.4 BMP, 09/05/24: Unremarkable HGB A1c, 09/05/2020 4:5.7 TBI/AST/ALT/AP, 09/05/2024: 1.4/13/14/129 TG/HDL/LDL/HDL, 09/05/2024: 1221/157/113/33 CT head, 08/23/2024: 1. Acute intraparenchymal hemorrhage in the posterior aspect of the hair. 2. Additional findings as detailed above CT head, 09/04/2024, comparison: CT dated 08/23/2024: 1. Previously seen area of intracranial hemorrhage at the posterior aspect of the hair not demonstrates low-density consistent with evolving changes from the prior hemorrhage, causing mild partial effacement of the anterior aspect of the 4th ventricle. 2. No new acute intracranial hemorrhage. 3. No other evidence of acute intracranial abnormality CT head, 09/05/2024: Persistent edema in the area of the previously seen hemorrhage in posterior left paramedian midbrain with mild mass effect on the adjacent 4th ventricle noted. There is a new punctate focus of density anterior to this hypoattenuating area that may represent a prominent vessel or new punctate hemorrhage. Recommend attention on follow-up. No hydrocephalus or midline shift MRI brain, 09/05/24: 1. Again noted is subacute intraparenchymal hemorrhage in the posterior aspect of the hair. There is associated mild edema and mild mass effect on the adjacent portions of the 4th ventricle. 2. No other acute abnormality identified vital signs Vital Sign Date Time Temp Pulse Resp B/P (MAP) Pulse Ox O2 Delivery O2 Flow Rate FiO2 09/06/24 05:00 98.2 91 20 120/85 (97) 92 98.2 09/05/24 20:00 Room Air* 0 21 Total Intake and Output 09/05/24 09/05/24 09/06/24 15:00 23:00 07:00 Intake Total 800 ml 750 ml Balance 800 ml 750 ml medications Current Medications Medications Dose Ordered Sig/Kirk Route Start Time Stop Time Status Last Admin Dose Admin Amlodipine Besylate 5 mg DAILY PO 09/06/24 10:00 Atorvastatin Calcium 40 mg HS PO 09/06/24 22:00 UNV objective General: the patient is well developed and nourished. No acute distress. MENTAL STATUS: Subjective SPEECH, LANGUAGE, HIGHER CORTICAL FUNCTION: no aphasia or dysathria. CRANIAL NERVES: Pupils are equal, round and reactive. Left sixth cranial nerve palsy. No nystagmus. Facial sensation intact in all three divisions bilaterally. Mandibular strength intact. Left facial weakness of lower motor neuron pattern. Hearing grossly normal to voice. SENSATION: Sensation to touch and pinprick is normal. MOTOR: Normal tone in the upper and lower extremity. Normal muscle bulk. No fasciculations. No abnormal movements or posturing. Muscle strength of the major groups in the extremities is 5/5. REFLEXES: Deep tendon reflexes normal and symmetrical. No pathological reflexes. CEREBELLAR/COORDINATION: Finger to nose is normal bilaterally. GAIT/STATION: deferred. laboratory and microbiology Laboratory Tests 09/06/24 05:58 Test 09/06/24 05:58 Range/Units Serum Glucose 105 74-106 mg/dL Problem List Hemorrhage pontine stroke on 08/23/2024 with residual left facial weakness, left six cranial nerve palsy and gait disturbance Acute left mouth corner drooping, left cheek numbness on 09/04/2024 Hypertension Assessment/Plan Monitoring Supportive treatment Telemetry Up to chair Physical therapy Hypertension control More recommendation per clinical course This medical document was created using an electronic medical record system with [employer] dictation system. Although this document has been carefully reviewed, there may still be some phonetic and typographical errors. These areas are purely typographical due to imperfections of the software programs, and do not reflect any compromise in the patient's medical care. Prognosis poor Plan discussed with: Patient, Other KENAN PARRY MD Sep 06, 2024 09:30
[2024-09-06] MEDS: amLODIPine BESYLATE 5 MG TAB PO SCH (09:38)
[2024-09-06] MEDS: ATORVASTATIN 20 MG TAB PO ONE (09:55)
[2024-09-06 11:13] LABS: INR 1.14 (0.9-1.15)
[2024-09-06 13:00] VITALS: BP 111/72; PULSE 88; RESP 18; TEMP 98.1; O2SAT 95
--- NOTE | 2024-09-06 15:24 | ECG ---
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
[2024-09-06 17:00] VITALS: BP_SYST 111; BP_SYST 126; BP_DIAS 72; BP_DIAS 82; PULSE 100; PULSE 88; RESP 16; RESP 18; TEMP 97.6; TEMP 98.1; O2SAT 95; O2SAT 96
--- NOTE | 2024-09-06 17:16 | DVHSR ---
APPROVED REPORT EXAM: Two-dimensional and M-mode echocardiogram with Doppler and color Doppler. INDICATION CVA/TIA: RISK FACTORS Height: 5'8", Weight: 224 DIMENSIONS LVDd4.5 (3.8-5.7cm)LA (2D)3.7 (1.9-4.0cm)Aortic Root3.1 (2.0-3.7cm) LVDs2.5 (2.5-4.0cm)LA (MM) (1.9-4.0cm)Aortic Cusp Exc1.9 (1.5-2.0cm) EF (%) 74.0 (55-70%)Rt. Atrium4.5 (1.9-4.0cm)Asc. Aorta3.2 cm IVSd0.8 (0.7-1.1cm)RV (D)4.1 (1.8-2.4cm) PWd0.9 (0.7-1.1cm) Mitral Valve MitralMitral Stenosis E wave0.46m/sMV Mean GR.mmHg A wave0.79m/sMV Peak GR.mmHg E/A ratio0.62D MVAcm2 DECEL [id number] 1/2 [place] Aortic Valve Aortic ValveAortic Stenosis V11.14m/Man Mean GR.3mmHg V21.14m/Man Peak GR.5mmHg LVOT Diameter2.2 (1.8-2.4cm)Doppler AVA3.80cm2 Pulmonic Valve V21.17m/s Tricuspid Valve TR Velocity2.43m/s [id number] Other Information Quality : Technically LimitedRhythm : Technically limited study due to body habitus. Conclusion Normal left ventricular size and dimension. Normal left ventricular systolic function estimated ejec tion fraction 55%. There is a grade 1 diastolic dysfunction. Normal right ventricular size and dimension. Normal right ventricular systolic function. Normal biatrial size and dimension. Normal aortic valve structure and function. Normal mitral valve structure and function. Normal tricuspid valve structure and function. The pulmonary valve is grossly normal. No pericardial effusion.
[2024-09-06] MEDS ORDERED: ATOR-507 PO (17:32)
[2024-09-06] MEDS ORDERED: ATORVASTATIN 20 MG TAB PO SCH (22:00)
--- NOTE | 2024-09-07 06:27 | DVHDSRES ---
Discharge Summary Date of Admission Resident Creating Document: BULL SAMUEL RESDIENT Sep 04, 2024 at 15:10 Date of Discharge: Sep 06, 2024 Admitting Diagnosis To Rule out stroke Labs/Diagnostic Data: Laboratory Results Test 09/06/24 10:35 09/06/24 05:58 09/05/24 04:44 09/04/24 12:15 Prothrombin Time 12.0 sec (9.3-11.8) Prothrombin Time INR 1.14 (0.9-1.15) White Blood Count 9.2 10^3/uL (4.4-10.8) Red Blood Count 5.61 10^6/uL (4.5-5.90) Hemoglobin 16.6 g/dL (13.5-17.5) Hematocrit 48.9 % (41.0-53.0) Mean Corpuscular Volume 87.0 fL (80.0-100.0) Mean Corpuscular Hemoglobin 29.5 pg (28.0-32.0) Mean Corpuscular Hemoglobin Concent 33.9 g/dL (32.0-36.0) Red Cell Distribution Width 14.4 % (11.8-14.3) Platelet Count 250 10^3/uL (140-450) Mean Platelet Volume 7.1 fL (6.9-10.8) Neutrophils (%) (Auto) 65.2 % (37.0-80.0) Lymphocytes (%) (Auto) 25.2 % (10.0-50.0) Monocytes (%) (Auto) 7.4 % (0.0-12.0) Eosinophils (%) (Auto) 1.6 % (0.0-7.0) Basophils (%) (Auto) 0.6 % (0.0-2.0) Neutrophils # (Auto) 6.0 10 ^3/uL (1.6-8.6) Lymphocytes # (Auto) 2.3 10 ^3/uL (0.4-5.4) Monocytes # (Auto) 0.7 10 ^3/uL (0-1.3) Eosinophils # (Auto) 0.2 10 ^3/uL (0-0.8) Basophils # (Auto) 0.1 10 ^3/uL (0-0.2) Nucleated Red Blood Cells 0.2 % Sodium Level 141 mmol/L (136-145) Potassium Level 3.9 mmol/L (3.5-5.1) Chloride Level 108 mmol/L (98-107) Carbon Dioxide Level 22 mmol/L (20-31) Anion Gap 11 (5-15) Blood Urea Nitrogen 10 mg/dL (9-23) Creatinine 0.86 mg/dL (0.700-1.30) Glomerular Filtration Rate Calc 100 mL/min (>90) BUN/Creatinine Ratio 11.6 (10.0-20.0) Serum Glucose 105 mg/dL (74-106) Calcium Level 9.9 mg/dL (8.7-10.4) Thyroid Stimulating Hormone (TSH) 1.04 uIU/mL (0.55-4.78) Hemoglobin A1c 5.7 % A1C (<5.7) Total Bilirubin 1.4 mg/dL (0.2-1.0) Aspartate Amino Transferase (AST) 14 U/L (13-40) Alanine Aminotransferase (ALT) 14 U/L (7-40) Alkaline Phosphatase 129 U/L (46-116) Total Protein 6.7 g/dL (5.7-8.2) Albumin 4.2 g/dL (3.2-4.8) Triglycerides Level 121 mg/dL (< 150) Cholesterol Level 157 mg/dL (< 200) LDL Cholesterol 113 mg/dL (< 100) HDL Cholesterol 33 mg/dL (40-59) Activated Partial Thromboplast Time 28.4 SEC (24.5-34.5) Other Laboratory Tests 09/06/24 05:58 Brief Hx & Hospital Course: Patient is a 58 year old male with a past medical history as described below came to the ED with the chief complaint of Facial droop noticed by the daughter in the morning of the day of presentation. Patient reported he was apparently well until dece2023 when he felt numbness in left side of the face and had vision abnormalities and felt weak, following which he was evaluated in the hospital where CT showed Acute intraparenchymal hemorrhage in the posterior aspect of the hair. Patient was stabilised and sent for higher level of care at [facility] where from where he was reportedly discharged after 2 days. Patient was feeling well with residual effects of aphasia, imbalance walking with a front wheel walker, no motor or sensory deficiets until the morning of presentation to the hospital when the daughter saw that his facial droop seems to have aggravated but the patient did not feel so. On physical examination during admission, there was left-sided facial droopiness, which involving upper and lower half of the face, left 6 nerve palsy, and imbalance. But the power was 5 x 5 on the right and left upper and lower limb. Lab studies was insignificant. During hospital admission the patient was put on possible recurrent hemorrhagic stroke, the patient was continued on amlodipine 5 mg and started atorvastatin [address] mg daily[address] Plain head CT scan was repeated to time, showed no new acute intracranial hemorrhage or any other intracranial abnormalities, showed evidence of previous intracranial hemorrhage at the posterior aspect of the hair, causing mild partial effacement of the anterior aspect of the 4th ventricle. Brain MRI showed, subacute intraparenchymal hemorrhage in the posterior aspect of the hair. There is associated mild edema and mild mass effect on the adjacent portions of the 4th ventricle. Echocardiogram showed normal left ventricular EF 55%, with grade 1 diastolic dysfunction. Neurology evaluated the patient, and recommended supportive treatment, hypertension control and physical therapy. Physiotherapy evaluated the patient and recommended the patient can follow up on outpatient basis. On 09/06, the patient was clinically and hemodynamically stable. The patient's vitals was within normal limits and lab studies were showing no abnormalities. Discharge plan discussed with the patient the patient was discharged. Discharge plan: Follow up with the PCP within 1 week of the discharge Follow up with the discharge Clinic Follow up with the Neurology on outpatient basis Continue amlodipine 5 mg daily Continue atorvastatin 40 mg daily Consults/Reason for consult Neurology: To rule out stroke Operations or Procedures [place] [id number] Ph: [phone] DIAGNOSTIC IMAGING Diagnostic Imaging Report : [id number] Signed PATIENT: DORIS FERNANDEZ ACCT: [id number] UNIT: [id number] : 1965 LOC: CENTRAL ROOM / BED: 0216 / B AGE / SEX: 58 / M ADM STATUS: ADM IN SERVICE 1305 ORDERING PHYSICIAN: KENAN PARRY MD PROCEDURE(s): MBHL - BRAIN HEAD WO CONTRAST REASON: CVA ORDER NUMBER(s): [id number], ACCESSION NUMBER(s): [id number] CLINICAL INDICATION: 58 years old, Male; CVA. COMPARISON: CT HEAD WITHOUT CONTRAST on DOS: 09/05/24, CT HEAD WITHOUT CONTRAST on DOS: 09/04/24. CT dated 08/23/2024. TECHNIQUE: Multisequence multiplanar MRI images of the brain were obtained without contrast. FINDINGS: There is T1 hyperintense intraparenchymal hemorrhage in the posterior aspect of the hair, slightly to the left of midline, measuring up to 0.8 cm in greatest dimension, also demonstrating restricted diffusion. There is mild mass effect on the adjacent left anterior aspect of the 4th ventricle. The hemorrhage also demonstrates T2 and FLAIR hyperintense signal. There is some surrounding vasogenic edema. No evidence of acute infarct. The lateral ventricles and 3rd ventricle are within normal limits in size. Basal cisterns are patent. Mild mucosal thickening of the paranasal sinuses. Orbits are grossly unremarkable. IMPRESSION: 1. Again noted is subacute intraparenchymal hemorrhage in the posterior aspect of the hair. There is associated mild edema and mild mass effect on the adjacent portions of the 4th ventricle. 2. No other acute abnormality identified ATED BY: CHARLES AMAYA DO DICTATED DATE/TIME: 09/05/241820 SIGNED BY: CHARLES AMAYA DO SIGNED DATE/TIME: 09/05/241820 CC: [place] [id number] Ph: [phone] DIAGNOSTIC IMAGING Diagnostic Imaging Report : [id number] Signed PATIENT: DORIS FERNANDEZ ACCT: [id number] UNIT: [id number] : 1965 LOC: CENTRAL ROOM / BED: [facility] B AGE / SEX: 58 / M ADM STATUS: ADM IN SERVICE 1017 ORDERING PHYSICIAN: JOYCE CANADA RESIDENT PROCEDURE(s): HWOCT - HEAD WITHOUT CONTRAST REASON: H/o stroke, follow up ct ORDER NUMBER(s): [id number], ACCESSION NUMBER(s): [id number] EXAM: CT HEAD WITHOUT CONTRAST HISTORY: H/o stroke, follow up ct COMPARISON: CT HEAD WITHOUT CONTRAST on DOS: 09/04/24, CT STROKE CTH on DOS: 08/23/24 TECHNIQUE: Axial images were obtained and reformatted in coronal and sagittal planes. All CT scans at this medical facility are performed using dose modulation techniques as appropriate to a performed exam including the following: Automated exposure control was utilized; adjustment of the MA and/or KV according to patient size; and use of iterative reconstruction technique. CT Dose: CTDI volume is 53.94 mGy. Dose-length product is 1082.34 mGy*cm FINDINGS: Supratentorial Region: No evidence for large acute territorial ischemia. No intracranial hemorrhage is noted. Posterior Fossa: No acute abnormality. Midbrain: Persistent edema in the area of the previously seen hemorrhage in posterior left paramedian midbrain with mild mass effect on the adjacent 4th ventricle noted. There is a new punctate focus of density anterior to this hypoattenuating area that may represent a prominent vessel or new punctate hemorrhage. Sellar/Suprasellar Region: Unremarkable. Ventricles, Cisterns, Sulci: Age-appropriate. Orbits: Unremarkable. Paranasal Sinuses: Unremarkable. Mastoid Air Cells: Unremarkable. Vasculature: Unremarkable. Bones/Soft Tissues: No acute abnormality. Other: None. IMPRESSION: 1. Persistent edema in the area of the previously seen hemorrhage in posterior left paramedian midbrain with mild mass effect on the adjacent 4th ventricle noted. There is a new punctate focus of density anterior to this hypoattenuating area that may represent a prominent vessel or new punctate hemorrhage. Recommend attention on follow-up. No hydrocephalus or midline shift. ATED BY: LIZZIE BRUCE MD DICTATED DATE/TIME: 09/05/24 1113 SIGNED BY: LIZZIE BRUCE MD SIGNED DATE/TIME: 09/05/24 1113 CC: [place] [id number] Ph: [phone] DIAGNOSTIC IMAGING Diagnostic Imaging Report : [id number] Signed PATIENT: DORIS FERNANDEZ ACCT: [id number] UNIT: [id number] : 1965 LOC: CENTRAL ROOM / BED: [facility] / B AGE / SEX: 58 / M ADM STATUS: ADM IN SERVICE 0918 ORDERING PHYSICIAN: MAXIM COTA RESIDENT PROCEDURE(s): ECIDC - ECHO 2D MODE CARDIAC DOP REASON: stroke work up ORDER NUMBER(s): [id number], ACCESSION NUMBER(s): [id number] APPROVED REPORT EXAM: Two-dimensional and M-mode echocardiogram with Doppler and color Doppler. INDICATION CVA/TIA: RISK FACTORS Height: 5'8", Weight: 224 DIMENSIONS LVDd 4.5 (3.8-5.7cm) LA (2D) 3.7 (1.9-4.0cm) Aortic Root 3.1 (2.0- 3.7cm) LVDs 2.5 (2.5-4.0cm) LA (MM) (1.9-4.0cm) Aortic Cusp Exc 1.9 (1.5- 2.0cm) EF (%) 74.0 (55-70%) Rt. Atrium 4.5 (1.9-4.0cm) Asc. Aorta 3.2 cm IVSd 0.8 (0.7-1.1cm) RV (D) 4.1 (1.8-2.4cm) PWd 0.9 (0.7-1.1cm) Mitral Valve Mitral Mitral Stenosis E wave 0.46m/s MV Mean GR. mmHg A wave 0.79m/s MV Peak GR. mmHg E/A ratio 0.6 2D MVA cm2 DECEL Time 233ms PRESS 1/2 Time ms Aortic Valve Aortic Valve Aortic Stenosis V1 1.14m/s AO Mean GR. 3mmHg V2 1.14m/s AO Peak GR. 5mmHg LVOT Diameter 2.2 (1.8-2.4cm) Doppler JADYN 3.80cm2 Pulmonic Valve V2 1.17m/s Tricuspid Valve TR Velocity 2.43m/s RVSP 27mmHg Other Information Quality : Technically Limited Rhythm : Technically limited study due to body habitus. Conclusion Normal left ventricular size and dimension. Normal left ventricular systolic function estimated ejection fraction 55%. There is a grade 1 diastolic dysfunction. Normal right ventricular size and dimension. Normal right ventricular systolic function. Normal biatrial size and dimension. Normal aortic valve structure and function. Normal mitral valve structure and function. Normal tricuspid valve structure and function. The pulmonary valve is grossly normal. No pericardial effusion. 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 Follow up with the Neurology on outpatient basis. Medications: Amlodipine 5 mg daily Atorvastatin 40 mg daily Discharge Statement: "Patient was advised to return to the ER or call 911 if any headaches, dizziness, shortness of breath, chest pain, abdominal pain, bleeding, fevers, or worsening of medical condition. Patient was counseled about treatment plan, medications, possible side effects, patientverbalized understanding. All questions were answered to the best of my ability. This discharge took greater then 30 minutes in planning, reviewing documentation, counseling the patient, and discussing with other team members." ASSESSMENT ASSESSMENT Assessment Subacute hemorrhagic stroke [facility] Sep 07, 2024 06:27
== END 2024-09-06 17:40 | disposition home or self-care (01) | DRG 44 ==
LOC: ER 11:32 → OVERFLOW 15:10 → CENTRAL 22:35
PROVIDERS: ADMIT Student in an Organized Health Care Education/Training Program; ATTEND Student in an Organized Health Care Education/Training Program
DX: I61.9 Nontraumatic intracerebral hemorrhage, unspecified (principal); H49.22 Sixth [abducent] nerve palsy, left eye; E87.8 Other disorders of electrolyte and fluid balance, not elsewhere classified; G51.0 Bell's palsy; E78.5 Hyperlipidemia, unspecified; G52.9 Cranial nerve disorder, unspecified; H53.2 Diplopia; I10 Essential (primary) hypertension; Z82.49 Family history of ischemic heart disease and other diseases of the circulatory system; Z83.3 Family history of diabetes mellitus; Z79.899 Other long term (current) drug therapy
CPT/HCPCS: 36415; 70450; 70551; 80048; 80053; 80061; 83036; 84443; 85025; 85610; 85730; 93005; 93306; 97163; G0378

== ENCOUNTER 2024-11-20 17:16 | Emergency (ER) | payer MEDICAID ==
[~2024-11-20] VITALS: Ht 172.7 cm; Wt 99.3 kg
[~2024-11-20 17:16] MED LIST: AMLO1TAB22 PO; ATOR-507 PO
[2024-11-20] MEDS ORDERED: MOXI0.5D9 OP (18:56)
--- NOTE | 2024-11-20 18:56 | ED.PDOC ---
Eye-HPI HPI Comments Pt presents to the ER with a C/C of left eye irritation. Reports redness and itching for approx. 1 week. Pt reports PMH of stroke with left sided deficitics states since unable to close eye completely. Redness noted to eye, denies any new injury. Denies any other symptoms. Chief Complaint: Eye Problem Time Seen by MD: 17:40 Primary Care Provider: UNKNOWN Reviewed Notes: Nurses Notes, Medications, Allergies Allergies: Coded Allergies: NO KNOWN ALLERGIES (Unverified , 08/23/24) Home Meds Active Scripts Atorvastatin Calcium (Lipitor) 40 Mg Tab, 1 TAB PO DAILY, #30 TAB 2 Refills Prov:ELVIA ZULETA MD 09/06/24 Reported Medications Amlodipine Besylate (Amlodipine Besylate) 5 Mg Tab, 1 TAB PO DAILY 09/04/24 Discontinued Scripts Moxifloxacin Hydrochloride (Moxifloxacin) 0.5 % Cresencio, 0.5 % OP TID for 7 Days, #3 ML INSTILL ONE DROP INTO LEFT EYE TID X 7 DAYS Prov:FLORENTIN WISDOM 11/20/24 Information Source: Patient Mode of Arrival: Ambulatory Past Medical History PAST MEDICAL HISTORY: HTN Surgical History: Denies all surgeries Family History Family History: Reviewed,noncontributory to illness, Unknown Social History Smoker: Non-Smoker Alcohol: Denies ETOH Use Drugs: Denies Drug Use Lives In: Home Constitutional: denies: chills, diaphoresis, fatigue, fever, malaise, sweats, weakness, others EENTM: reports: eye redness; denies: blurred vision, double vision, ear bleed ing, ear discharge, ear drainage, ear pain, ear ringing, eye pain, hearing loss, mouth pain, mouth swelling, nasal discharge, nose bleeding, nose congestion, nose pain, photophobia, tearing, throat pain, throat swelling, voice changes, others Respiratory: denies: cough, hemoptysis, orthopnea, SOB at rest, shortness of breath, SOB with excertion, stridor, wheezing, others Cardiovascular: denies: chest pain, dizzy spells, diaphoresis, Dyspnea on exertion, edema, irregular heart beat, left arm pain, lightheadedness, palpitations, PND, syncope, others Gastrointestinal: denies: abdomen distended, abdominal pain, blood streaked bowels, constipated, diarrhea, dysphagia, difficulty swallowing, hematemesis, melena, nausea, poor appetite, poor fluid intake, rectal bleeding, rectal pain, vomiting, others Genitourinary: denies: burning, dysuria, flank pain, frequency, hematuria, incontinence, penile discharge, penile sore, pain, testicle pain, testicle swelling, urgency, others Neurological: denies: dizziness, fainting, headache, left sided numbness, left sided weakness, numbness, paresthesia, pre-existing deficit, right sided numbness, right sided weakness, seizure, speech problems, tingling, tremors, weakness, others Musculoskeletal: denies: back pain, gout, joint pain, joint swelling, muscle pain, muscle stiffness, neck pain, others Integumetry: denies: bruises, change in color, change in hair/nails, dryness, laceration, lesions, lumps, rash, wounds, others Allergic/Immunocompromised: denies: Difficulty Healing, Frequent Infections, Hives, Itching, others Hematologic/Lymphatic: denies: anemia, blood clots, easy bleeding, easy bruising, swollen glands, others Endocrine: denies: excessive hunger, excessive sweating, excessive thirst, excessive urination, flushing, intolerance to cold, intolerance to heat, un explained weight gain, unexplained weight loss, others Psychiatric: denies: anxiety, bipolar disorder, depression, hopeless, panic disorder, schizophrenia, sleepless, suicidal, others Physical Exam General Appearance: No Apparent Distress, Normal HEENT: Pharynx Normal, TMs Normal, Other (Left eye hyperemia conjunctiva noted yellowish drainage. ) Neck: Full Range of Motion, Non-Tender, Normal, Normal Inspection Respiratory: Chest Non-Tender, Lungs Clear, No Accessory Muscle Use, No Respiratory Distress, Normal Breath Sounds Cardiovascular: No Edema, No JVD, No Murmur, No Gallop, Normal Peripheral Pulses, Regular Rate/Rhythm Breast Exam: Deferred Gastrointestinal: No Organomegaly, Non Tender, No Pulsatile Mass, Normal Bowel Sounds, Soft Genitalia: Deferred Pelvic: Deferred Rectal: Deferred Extremities: No calf tenderness, Normal capillary refill, Normal inspection, Normal range of motion, Non-tender, No pedal edema Musculoskeletal : Apperance: Normal Neurologic: 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 Was a procedure done?: No EENT DIFF Eye: Chalazion, Allergic, Corneal Ulceration, Foreign Body-Conjunctiva, Foreign Body-Corneal, Foreign Body-Intraocular, Foreign Body-Lid X-Ray, Labs, Meds, VS Vital Signs Date Time Temp Pulse Resp B/P (MAP) Pulse Ox O2 Delivery O2 Flow Rate FiO2 11/20/24 19:33 98.0 105 18 128/84 (99) 96 98.0 11/20/24 19:33 105 18 96 Room Air 11/20/24 17:56 97.9 110 16 143/86 (105) 97 X-Ray, Labs, Meds, VS Comment Likely bacterial trial erythromycin ointment script to pharmacy 1st dose provided today in [facility]. Take medications as prescribed side effects discussed. 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 Time of 1ST Reevaluation: 18:50 Reevaluation 1ST: Improved Patient Education/Counseling: Diagnosis, Treatment, Prognosis, Need For Follow Up Family Education/Counseling: No Family Present Departure 1 Departure Time of Disposition: 18:54 Impression: Primary Impression: Conjunctivitis Qualified Codes: H10.32 - Unspecified acute conjunctivitis, left eye Disposition: HOME / SELF CARE / HOMELESS Condition: Stable Discharged With: Friend Critical Care Note Critical Care Time?: No Stability Stability form required: FLORENTIN Kelly Nov 20, 2024 18:56
[2024-11-20 19:33] VITALS: BP 128/84; PULSE 105; RESP 18; TEMP 98; O2SAT 96
== END 2024-11-20 19:35 | disposition home or self-care (01) ==
LOC: ER 17:16
DX: H10.9 Unspecified conjunctivitis (principal); I10 Essential (primary) hypertension; Z79.899 Other long term (current) drug therapy